=== PATIENT | male | born 1975 | race Caucasian/White ===

== ENCOUNTER 2018-07-05 06:42 | Outpatient (CLI) ==
--- NOTE | 2018-07-05 09:48 | DI ---
EXAM: Two views of the chest. History: Short of breath and chest pain. Comparison: Chest radiograph 04/26/2012 Findings: Heart size is within normal limits. No focal consolidation. No appreciable pleural fluid and no pneumothorax. No acute osseous abnormalities. Impression: No acute cardiopulmonary process
--- NOTE | 2018-07-06 12:07 | ECHO2D ---
Date of Exam: 07/05/18 Ordering Physician: DR. MELVI DAVIS Room #: OP Reason for Echo: SOB, CHEST PAIN M-Mode Normal Adult Results LV Dimensions Normal Adult Results AoV Opening excursions >1.6 >1.6 LVEDD-base- 3.5-5.8 4.7 Ao root dimensions 2.0-3.7 3.5 LVESD-base- 3.1-4.6 L. Atrium dimensions 1.9-3.8 4.1 Post. Wall thickness 0.8-1.1 1.2 IV septum (thickness) 0.7-1.2 1.1 Post. Wall excursion 0.72-1.3 NORMAL Septal motion NORMAL Systolic motion R. Ventricular cavity 1.5-2.0 NORMAL LVEF 60% 57% Paradoxical septal wall motion NORMAL 2-D : 2-D M Mode Echocardiogram was performed using apical four chamber and left parasternal long and short axis views. Mitral, tricuspid and aortic valves appear to be normal. Contractility of the left ventricle seems to be normal, so is the cavity size. Left atrial cavity size and aortic root appear to be normal. There is no pericardial effusion. There is no thrombus noted in the left ventricular or left aortic cavity. No mitral valve prolapse noted. M-MODE: MV: NORMAL AV: NORMAL TV: NORMAL PV: CHAMBER SIZE: NORMAL WALL MOTION: NORMAL PERICARDIUM: NORMAL INTERPRETATION: 1. LEFT VENTRICULAR HYPERTROPHY WITH ENLARGED LEFT ATRIAL CAVITY 2. NORMAL LEFT VENTRICULAR CONTRACTILITY 3. NORMAL VALVES MTDD
--- NOTE | 2018-07-06 12:25 | ECHOSTRESS ---
Date of Exam: 07/05/18 Ordering Physician: DR. MELVI DAVIS Reason for Echo: SOB, CHEST PAIN, STRESS TEST--NO ISCHEMIA M-Mode Normal Adult Results LV Dimensions Normal Adult Results AoV Opening excursions >1.6 LVEDD-base- 3.5-5.8 Ao root dimensions 2.0-3.7 LVESD-base- 3.1-4.6 L. Atrium dimensions 1.9-3.8 Post. Wall thickness 0.8-1.1 IV septum (thickness) 0.7-1.2 Post. Wall excursion 0.72-1.3 Septal motion Systolic motion R. Ventricular cavity 1.5-2.0 LVEF 60% Paradoxical septal wall motion 2-D: NORMAL LEFT VENTRICULAR CONTRACTILITY--RESTING AND POST EXERCISE M-MODE: MV: AV: TV: PV: CHAMBER SIZE: WALL MOTION: NORMAL LEFT VENTRICULAR CONTRACTILITY--RESTING AND POST EXERCISE PERICARDIUM: INTERPRETATION: 1. NORMAL LEFT VENTRICULAR CONTRACTILITY--RESTING AND POST EXERCISE MTDD
--- NOTE | 2018-07-06 14:50 | STRESSECHO ---
Date of Test: 07/06/18 Ordering Physician: DR. MELVI DAVIS Occupation: [employer]ING [employer] Reason for Exam: SOB, CHEST PAIN Smoking History: QUIT 5 YRS AGO Height: 72" Weight: 215 LBS Current Medications: ZYRTEC, LIPITOR Resting EKG: SINUS RHYTHM/ NO ACUTE CHANGES Target Heart Rate: 151/178 S-T SEGMENT STAGE MPH/GRADE HEART RATE BPM BLOOD PRESSURE MMHG RHYTHM +/- ELEVATION DEPRESSION SYMPTOMS AT REST 74 BPM 122/88 MMHG SR X NONE 1 1.7/10% 115 BPM 130/90 MMHG SR X NONE 2 2.5/12% 140 BPM 142/90 MMHG SR X NONE 3 3.4/14% 4 4.2/16% 5 5.0/18% Immediately After 153 BPM SR X SHORT OF BREATH Minutes Post Exercise 5:00 90 BPM 132/92 MMHG SR X NONE Minutes Post Exercise DURATION OF EXERCISE: 6:20 MAXIMUM HEART RATE REACHED: 152 BPM REASON FOR TERMINATION: SHORT OF BREATH 98% OXYGEN SATURATION WITH EXERCISE ON ROOM AIR INTERPRETATION: 1. NO EVIDENCE OF ISCHEMIA BY ST-T WAVE 2. NO CHEST PAIN OR CHEST DISCOMFORT 3. BLOOD PRESSURE RESPONSE NORMAL AT REST AND WITH EXERCISE 4. NO ARRHYTHMIA NORMAL LEFT VENTRICULAR CONTRACTILITY--RESTING AND POST EXERCISE BY ECHO MTDD
== END 2018-07-05 06:43 | disposition home or self-care (01) ==
LOC: CAR 06:42
PROVIDERS: ATTEND Internal Medicine
DX: R06.02 Shortness of breath (principal); R07.9 Chest pain, unspecified